=== PATIENT | male | born 1940 | race Caucasian/White ===

== ENCOUNTER 2018-01-23 01:52 | Emergency (ER) | payer MEDICARE, BC ==
--- NOTE | 2018-01-23 03:54 | ER ---
DATE OF SERVICE: 01/23/2018 HISTORY OF PRESENT ILLNESS: A 77-year-old male who comes in by ambulance with complaints of confusion, sweating, and vomiting. The patient tells me that he is fairly certain that he doubled up on his NovoLog. He usually takes 18 units before supper, which he did. During his meal, he could not remember if he took it or not, so he took another 18 units, and about an hour later, he started to feel very sickly. The patient was cold. He was sweating profusely. He denies any problems with chest pain or shortness of breath, but he tells me that he did take a few sugar pills and some cranberry juice and orange juice, but shortly afterward he vomited most of this. The patient states that he felt very ill for a while, but en route to the hospital by ambulance, he noted that he was feeling better. Upon arrival at the emergency room, he states that he feels much better than he did a short time ago. PAST MEDICAL HISTORY: Includes hypertension; diabetes, insulin dependent; dyslipidemia. The patient takes medication for all of these conditions. OBJECTIVE: GENERAL APPEARANCE: The patient is awake and alert. He is pleasant and talkative. VITAL SIGNS: Reviewed. Blood pressure initially 136/88 on arrival. Our initial blood pressure taken after he had been here a few minutes shows a reading of 128/61, pulse of 63, O2 sats are 100%, respirations 16. The patient is afebrile. HEENT : Eyes, pupils equal, round, and reactive to light. EOMs are grossly intact. Oral mucous membranes are moist. Tonsils not enlarged or injected. Pharynx not inflamed. NECK: Supple. LUNGS: Clear. CARDIAC: Heart sounds distinct. S1, S2 present. No murmurs noted. ABDOMEN: Soft, protuberant, nontender. SKIN: Warm at this time. LAB AND X-RAY: An EKG shows normal sinus rhythm with a right bundle branch. Labs include a CBC showing white count elevated at 15.9, hemoglobin is normal. Comprehensive metabolic panel shows a creatinine of 1.52, otherwise unremarkable. Electrolytes are good. Blood glucose taken here is 95. DIAGNOSIS: Overdose of insulin. TREATMENT PLAN: At this point, the patient was assisted to a standing position and was able to walk around the trauma room without any difficulty. I advised the patient that he should have something small to eat and he is safe for discharge. They plan on spending a little time here waiting for their ride to come and get them. They are staying at a cabin in [place] about an hour away. I advised the patient in the future when he is unsure if he took his NovoLog, to not take a second dose. He should always take it right before he starts eating. He should also call his PCP to see if the RBBB is new. If so he may need further evaluation. CONDITION UPON DISCHARGE: Stable. CRS/MODL /[id number] JORGE
== END 2018-01-23 02:42 | disposition home or self-care (01) ==
LOC: LB.ED 01:52
DX: T38.3X1A Poisoning by insulin and oral hypoglycemic [antidiabetic] drugs, accidental (unintentional), initial encounter (principal); R41.0 Disorientation, unspecified; R61 Generalized hyperhidrosis; R11.10 Vomiting, unspecified; I10 Essential (primary) hypertension; E11.9 Type 2 diabetes mellitus without complications; E78.5 Hyperlipidemia, unspecified
CPT/HCPCS: 36415; 80053; 85025; 93005; 99284; 99284-25

== ENCOUNTER 2024-10-02 12:40 | Emergency (ER) | payer MEDICARE, BC ==
[2024-10-02 14:02] LABS: HEMATOCRIT 38.1 % (40.0-54.0); HEMOGLOBIN 12.7 g/dL (13.0-18.0); MEAN CORPUSCULAR HEMOGLOBIN 32.6 pg (27.0-32.0); MEAN CORPUSCULAR HGB CONC 33.3 g/dL (31.0-35.0); MEAN PLATELET VOLUME 10.9 fL (6.0-10.0); RED BLOOD CELL COUNT 3.89 M/uL (4.50-6.50); RED CELL DISTRIBUTION WIDTH 11.5 % (11.0-16.0); WHITE BLOOD CELL COUNT,WBC 9.1 K/uL (4.0-11.0)
[2024-10-02 14:17] LABS: ANION GAP 13.9 mmol/L (5.0-15.0); BUN/CREATININE RATIO 15.2 (6-25); CALCIUM 8.8 mg/dL (8.5-10.1); CARBON DIOXIDE,CO2 26.3 mmol/L (21.0-32.0); CREATININE 1.32 mg/dL (0.70-1.30); EST CRCL DRUG DOSING (CG) 40.82 mL/min; MAGNESIUM 1.6 mg/dL (1.8-2.4); POTASSIUM,K 4.2 mmol/L (3.5-5.1); TROPONIN I HIGH SENSITIVITY 4.7 pg/ml (<=60.4)
== END 2024-10-02 15:05 | disposition home or self-care (01) ==
LOC: LB.ED 12:40
DX: J21.9 Acute bronchiolitis, unspecified (principal); I48.91 Unspecified atrial fibrillation; E78.00 Pure hypercholesterolemia, unspecified; I10 Essential (primary) hypertension; K21.9 Gastro-esophageal reflux disease without esophagitis; E03.9 Hypothyroidism, unspecified; Z79.82 Long term (current) use of aspirin; Z79.899 Other long term (current) drug therapy; Z79.4 Long term (current) use of insulin; Z79.84 Long term (current) use of oral hypoglycemic drugs; Z79.890 Hormone replacement therapy
CPT/HCPCS: 36415; 71045; 80048; 83735; 84484; 85027; 93005; 99283; 99284

== ENCOUNTER 2024-11-16 19:02 | Observation (INO) | payer MEDICARE, BC ==
[2024-11-16] MEDS: Ondansetron 4 MG/2 ML SDV ONE (19:24)
[2024-11-16] MEDS: HYDROmorphone 1 MG/ML Syringe ONE (19:27)
[2024-11-16 19:42] LABS: HEMATOCRIT 35.5 % (40.0-54.0); HEMOGLOBIN 11.7 g/dL (13.0-18.0); MEAN CORPUSCULAR HEMOGLOBIN 32.8 pg (27.0-32.0); MEAN CORPUSCULAR VOLUME 99 fL (76-96); MEAN PLATELET VOLUME 10.9 fL (6.0-10.0); PLATELET COUNT,PLT 226 K/uL (150-400); RED BLOOD CELL COUNT 3.57 M/uL (4.50-6.50); RED CELL DISTRIBUTION WIDTH 12.6 % (11.0-16.0)
[2024-11-16 19:57] LABS: BUN/CREATININE RATIO 13.7 (6-25); CALCIUM 9.1 mg/dL (8.5-10.1); CARBON DIOXIDE,CO2 28.5 mmol/L (21.0-32.0); CREATININE 1.75 mg/dL (0.70-1.30); EST CRCL DRUG DOSING (CG) 33.26 mL/min; POTASSIUM,K 5.5 mmol/L (3.5-5.1); TROPONIN I HIGH SENSITIVITY 6.9 pg/ml (<=60.4)
[2024-11-16 20:09] LABS: WHITE BLOOD CELL COUNT,WBC 21.7 K/uL (4.0-11.0)
[2024-11-16] MEDS ORDERED: 50% Dextrose in Water 50 ML Syringe IVPUSH PRN ×3 (20:22→21:56)
[2024-11-16] MEDS ORDERED: Glucagon,Human Recombinant 1 MG Vial IM PRN ×3 (20:22→21:56)
[2024-11-16 20:23] LABS: TOXIC GRANULATION OCCASIONAL
[2024-11-16 20:24] LABS: PLATELET COUNT ESTIMATE ADEQUATE
[2024-11-16] MEDS: Insulin Lispro 100 Unit/ML 3 ML KwikPen SUBCUT SCH (20:28)
[2024-11-16] MEDS: Sodium Chloride 0.9% 1,000 ML IV SCH (20:35)
[2024-11-16] MEDS: Ketorolac 15 MG/ML SDV IVPUSH PRN (20:37)
[2024-11-16] MEDS ORDERED: Non-Formulary Medication 1 Each (Metformin [Glucophage] 850 MG Tablet) PO SCH (21:45)
[2024-11-16] MEDS ORDERED: Insulin Lispro 100 Unit/ML 3 ML KwikPen SUBCUT SCH (21:45)
[2024-11-16] MEDS: HYDROmorphone 2 MG/ML Syringe IVPUSH PRN (22:07)
[2024-11-16] MEDS: Non-Formulary Medication 1 Each (Insulin Glargine,Hum.Rec.Anlog [Lantus] 100 UNIT/ML Vial) SQ SCH (22:13)
[2024-11-16] MEDS: Ketorolac 15 MG/ML SDV ONE (22:44)
[2024-11-17] MEDS: Ketorolac 15 MG/ML SDV IVPUSH SCH (03:05)
[2024-11-17] MEDS: Levothyroxine 112 MCG Tab PO SCH (06:02)
[2024-11-17] MEDS: Levothyroxine 25 MCG Tab PO SCH (06:02)
[2024-11-17 07:38] VITALS: BP 101/89; PULSE 70
[2024-11-17] MEDS: Losartan 50 MG Tab PO SCH (07:42)
[2024-11-17] MEDS: Aspirin 81 MG Tab.EC PO SCH (07:43)
[2024-11-17] MEDS: Tamsulosin 0.4 MG Cap.ER PO SCH (07:43)
[2024-11-17] MEDS: PARoxetine 20 MG Tab PO SCH (07:43)
[2024-11-17] MEDS: Azithromycin 500 MG Tab PO ONE (07:43)
[2024-11-17 07:57] LABS: BASOPHILS ABSOLUTE AUTO 0.03 K/uL (0.02-0.10); BASOPHILS PERCENT AUTO 0.2 % (0.0-0.5); EOSINOPHILS ABSOLUTE AUTO 0.03 K/uL (0.04-0.40); EOSINOPHILS PERCENT AUTO 0.2 % (1.0-5.0); HEMOGLOBIN 10.5 g/dL (13.0-18.0); LYMPHOCYTES ABSOLUTE AUTO 1.75 K/uL (1.50-4.00); LYMPHOCYTES PERCENT AUTO 13.7 % (20.0-40.0); MEAN CORPUSCULAR HEMOGLOBIN 32.8 pg (27.0-32.0); MEAN CORPUSCULAR HGB CONC 32.8 g/dL (31.0-35.0); MEAN CORPUSCULAR VOLUME 100 fL (76-96); MEAN PLATELET VOLUME 10.4 fL (6.0-10.0); MONOCYTES ABSOLUTE AUTO 1.32 K/uL (0.20-0.80); MONOCYTES PERCENT AUTO 10.4 % (3.0-10.0); NEUTROPHILS ABSOLUTE AUTO 9.61 K/uL (2.00-7.50); NEUTROPHILS PERCENT AUTO 75.5 % (45.0-70.0); PLATELET COUNT,PLT 196 K/uL (150-400); RED CELL DISTRIBUTION WIDTH 12.8 % (11.0-16.0); WHITE BLOOD CELL COUNT,WBC 12.7 K/uL (4.0-11.0)
[2024-11-17] MEDS: Insulin Lispro 100 Unit/ML 3 ML KwikPen SUBCUT SCH (09:58)
[2024-11-17] MEDS: Ondansetron 4 MG/2 ML SDV IVPUSH PRN (12:00)
[2024-11-17] MEDS ORDERED: Ketorolac 15 MG/ML SDV IVPUSH PRN (14:00)
[2024-11-17] MEDS ORDERED: Insulin Glargine,Human Rec. Analog 100 Units/ML 3 ML Pen SUBCUT SCH ×2 (20:00→22:00)
[2024-11-18] MEDS ORDERED: Azithromycin 250 MG Tab PO SCH (08:00)
== END 2024-11-17 12:50 | disposition home or self-care (01) ==
LOC: LB.ED 19:02 → LB.MS 20:59 → UNDOADMOB 20:59 → LB.MS 21:44
PROVIDERS: ADMIT Family Medicine; ATTEND Family Medicine
DX: S22.41XA Multiple fractures of ribs, right side, initial encounter for closed fracture (principal); S92.355D Nondisplaced fracture of fifth metatarsal bone, left foot, subsequent encounter for fracture with routine healing; I10 Essential (primary) hypertension; E78.00 Pure hypercholesterolemia, unspecified; K21.9 Gastro-esophageal reflux disease without esophagitis; E03.9 Hypothyroidism, unspecified; Z79.84 Long term (current) use of oral hypoglycemic drugs; Z79.899 Other long term (current) drug therapy; X58.XXXA Exposure to other specified factors, initial encounter
CPT/HCPCS: 36415; 70450; 71250; 72125; 72128; 80048; 82947; 84484; 85025; 93005; 96374; 96375; 96376; 99222; 99238; 99285-25; A9270-GY; G0378; J1171; J1885; J2405; J7030

== ENCOUNTER 2024-11-29 14:54 | Emergency (ER) | payer MEDICARE, BC | END 2024-11-29 15:45 | disposition home or self-care (01) | LOC: LB.ED 14:54 | DX: R60.0 Localized edema (principal); I48.91 Unspecified atrial fibrillation; E78.00 Pure hypercholesterolemia, unspecified; I10 Essential (primary) hypertension; E03.9 Hypothyroidism, unspecified; E11.9 Type 2 diabetes mellitus without complications; Z86.16 Personal history of COVID-19; Z79.51 Long term (current) use of inhaled steroids; Z79.82 Long term (current) use of aspirin; Z79.4 Long term (current) use of insulin; Z79.899 Other long term (current) drug therapy; Z79.84 Long term (current) use of oral hypoglycemic drugs | CPT/HCPCS: 99283; A9270-GY ==